=== PATIENT | female | born 1950 | race Caucasian/White ===

== ENCOUNTER 2020-10-26 14:47 | Outpatient (CLI) | payer MEDICARE, OTHER ==
[2020-10-26] MEDS ORDERED: CHOL500015 PO (15:48)
[2020-10-26] MEDS ORDERED: LANS30CA PO (15:48)
[2020-10-26] MEDS ORDERED: CALC-112 PO (15:48)
[2020-10-26] MEDS ORDERED: IBUP-1221 PO (15:48)
[2020-10-26] MEDS ORDERED: DIPH25CA61 PO (15:48)
[2020-10-26] MEDS ORDERED: HYDR-3237 PO (15:48)
[2020-10-26] MEDS ORDERED: ASCO250T32 PO (15:48)
[2020-10-26] MEDS ORDERED: CYAN50008 PO (15:48)
[2020-10-26] MEDS ORDERED: LEVO112T2 PO (15:48)
[2020-10-26] MEDS ORDERED: CARI-389 PO (15:48)
[2020-10-26] MEDS ORDERED: HYDR-826 PO (15:48)
[2020-10-26] MEDS ORDERED: Turmeric PO (15:48)
[2020-10-26] MEDS ORDERED: NAPR-685 PO (15:48)
[2020-10-26 15:59] LABS: BASOPHILS % (AUTO) 1 % (0-1); EOSINOPHILS % (AUTO) 1 % (1-7); LYMPHOCYTES % (AUTO) 20 % (22-44); MEAN CORPUSCULAR HEMOGLOBIN 30.1 pg (27.0-34.8); MEAN CORPUSCULAR HGB CONC 33.9 g/dL (32.4-35.8); MEAN PLATELET VOLUME 7.5 fL (7.4-10.4); MONOCYTES % (AUTO) 7 % (2-9); NEUTROPHILS % (AUTO) 71 % (42-75); PLATELET COUNT 510 x10^3/uL (130-400); RED BLOOD COUNT 4.97 x10^6/uL (3.82-5.3)
[2020-10-26 16:09] LABS: ANION GAP 5 mmol/L (5-15); CALCIUM 9.5 mg/dL (8.5-10.1); CHLORIDE 108 mmol/L (98-107); CREATININE 0.86 mg/dL (0.55-1.02)
[2020-10-26 16:12] LABS: MD NO
== END 2020-10-26 23:59 | disposition home or self-care (01) ==
LOC: STAR 14:47
PROVIDERS: ATTEND Orthopaedic Surgery
DX: Z01.812 Encounter for preprocedural laboratory examination (principal); Z20.822 Contact with and (suspected) exposure to COVID-19; Z01.818 Encounter for other preprocedural examination; M13.852 Other specified arthritis, left hip; I44.4 Left anterior fascicular block
CPT/HCPCS: 36415; 80048; 85025; 87081; 93005; U0003

== ENCOUNTER 2020-11-01 05:42 | Observation (INO) | payer MEDICARE, OTHER ==
[~2020-11-01] VITALS: Ht 162.6 cm; Wt 92.6 kg
[~2020-11-01 05:42] MED LIST: ASCO250T32 PO; CALC-112 PO; CARI-389 PO; CHOL500015 PO; CYAN50008 PO; DIPH25CA61 PO; HYDR-3237 PO; HYDR-826 PO; IBUP-1221 PO; LANS30CA PO; LEVO112T2 PO; NAPR-685 PO; Turmeric PO
[2020-11-01] MEDS ORDERED: VANCOMYCIN 1,000 MG ONE (05:57)
[2020-11-01] MEDS ORDERED: TRANEXAMIC ACID 100 MG/ML, 10ML ONE ×2 (05:57)
[2020-11-01] MEDS ORDERED: KETOROLAC 60 MG/2 ML ONE (05:57)
[2020-11-01] MEDS ORDERED: ROPIvacaine/PF 0.2%, 20 ML ONE (05:57)
[2020-11-01] MEDS ORDERED: SODIUM CHLORIDE 0.9% 50 ML ONE (05:58)
[2020-11-01] MEDS ORDERED: EPINEPHRINE 1 MG/ML, 1ML ONE (05:58)
[2020-11-01 06:06] VITALS: BP 136/94
[2020-11-01] MEDS ORDERED: CHLORHEXIDINE 15 ML UDC PO ONE (06:30)
[2020-11-01] MEDS ORDERED: LACTATED RINGERS 1,000 ML IV SCH (06:30)
[2020-11-01] MEDS ORDERED: FENTANYL PF 250 MCG/5ML ONE (06:46)
[2020-11-01] MEDS ORDERED: ROCURONIUM 10MG/ML,5ML ONE (07:23)
[2020-11-01] MEDS ORDERED: GLYCOPYRROLATE 0.2MG/1ML, 5ML ONE (07:23)
[2020-11-01] MEDS ORDERED: PROPOFOL 10 MG/ML, 20ML ONE (07:23)
[2020-11-01] MEDS ORDERED: SUCCINYLCHOLINE 20 MG/ML, 10ML ONE (07:23)
[2020-11-01] MEDS ORDERED: DEXAMETHASONE 4 MG/ML, 1ML ONE (07:23)
[2020-11-01] MEDS ORDERED: CEFAZOLIN 1,000 MG ONE (07:23)
[2020-11-01] MEDS ORDERED: NEOSTIGMINE 1 MG/ML, 10ML ONE (07:23)
[2020-11-01] MEDS ORDERED: ONDANSETRON 2MG/ML, 2ML ONE ×2 (07:23→08:55)
[2020-11-01] MEDS ORDERED: OXYcodone 5 MG/5 ML ORAL.SOL UDC PO PRN (07:30)
[2020-11-01] MEDS ORDERED: PROMETHAZINE 25 MG SUPP PR PRN (07:30)
[2020-11-01] MEDS ORDERED: HYDROmorphone 1 MG/ML, 1ML INJ IVPush PRN ×2 (07:30→09:00)
[2020-11-01] MEDS ORDERED: LABETALOL 5MG/ML, 20ML IV PRN (07:30)
[2020-11-01] MEDS ORDERED: METHOCARBAMOL 1,000 MG in DEXTROSE 5% 100 ML IV PRN (07:30)
[2020-11-01] MEDS ORDERED: LORazepam 2 MG/ML, 1ML IVPush PRN (07:30)
[2020-11-01] MEDS ORDERED: ACETAMINOPHEN 325 MG TABLET PO PRN (07:30)
[2020-11-01] MEDS ORDERED: ONDANSETRON 2MG/ML, 2ML IVPush PRN ×2 (07:30→09:00)
[2020-11-01] MEDS ORDERED: hydrALAzine 20 MG/ML, 1ML IV PRN (07:30)
[2020-11-01] MEDS ORDERED: HYDROmorphone 1 MG/ML, 1ML INJ ONE ×2 (07:35→08:17)
[2020-11-01] MEDS ORDERED: FENTANYL PF 100 MCG/2ML ONE ×2 (08:55→09:23)
[2020-11-01] MEDS ORDERED: ONDANSETRON 4 MG TABLET PO PRN (09:00)
[2020-11-01] MEDS ORDERED: TRANEXAMIC ACID 1,000 MG in SODIUM CHLORIDE 0.9% 100 ML IVPB ONE (09:00)
[2020-11-01] MEDS ORDERED: DIPHENHYDRAMINE 25 MG CAPSULE PO PRN (09:00)
[2020-11-01] MEDS ORDERED: OXYcodone/APAP 10/325MG TABLET PO PRN (09:00)
[2020-11-01] MEDS ORDERED: PROMETHAZINE 25 MG/ML, 1ML IM PRN (09:00)
[2020-11-01] MEDS: FENTANYL PF 100 MCG/2ML IV PRN ×3 (09:01→09:27)
[2020-11-01] MEDS ORDERED: PROMETHAZINE 25 MG/ML, 1ML ONE (09:47)
[2020-11-01] MEDS: PROMETHAZINE 25 MG/ML, 1ML IVPush PRN (09:50)
[2020-11-01] MEDS ORDERED: HALOPERIDOL 5 MG/ML ONE (10:19)
[2020-11-01] MEDS ORDERED: HALOPERIDOL 5 MG/ML IV ONE (10:30)
[2020-11-01] MEDS ORDERED: METOCLOPRAMIDE 5 MG/ML, 2ML IVPush PRN (11:00)
[2020-11-01 12:44] VITALS: BP 108/70
[2020-11-01] MEDS ORDERED: DEXAMETHASONE 4 MG/ML, 1ML IVPush ONE (13:00)
[2020-11-01] MEDS ORDERED: SCOPOLAMINE 1MG PATCH TD ONE (13:00)
[2020-11-01] MEDS: DOCUSATE 100 MG CAPSULE PO SCH ×2 (14:33→20:40)
[2020-11-01] MEDS: OXYcodone/APAP 5/325MG TABLET PO PRN ×3 (16:46→22:04)
[2020-11-01] MEDS: CEFAZOLIN PMX 1GM/50ML 50 ML IVPB SCH (16:46)
[2020-11-01] MEDS: KETOROLAC 30 MG/1 ML IV SCH (16:47)
[2020-11-01 19:36] VITALS: BP 147/78
[2020-11-01] MEDS: DIAZEPAM 5 MG TABLET PO PRN (20:40)
[2020-11-02 00:19] VITALS: BP 109/65
[2020-11-02] MEDS: CEFAZOLIN PMX 1GM/50ML 50 ML IVPB SCH (00:27)
[2020-11-02] MEDS: KETOROLAC 30 MG/1 ML IV SCH ×2 (00:27→08:10)
[2020-11-02] MEDS: DIAZEPAM 5 MG TABLET PO PRN (01:50)
[2020-11-02] MEDS: OXYcodone/APAP 5/325MG TABLET PO PRN ×3 (03:12→13:54)
[2020-11-02 03:59] VITALS: BP 112/73
[2020-11-02] MEDS ORDERED: ASPIRIN 81 MG TABLET EC PO SCH ×2 (06:00→18:00)
[2020-11-02] MEDS ORDERED: LEVOTHYROXINE 112 MCG TABLET PO SCH (06:00)
[2020-11-02] MEDS ORDERED: DEXAMETHASONE 4 MG/ML, 1ML IVPush ONE (06:00)
[2020-11-02 06:55] VITALS: BP 113/69
[2020-11-02] MEDS ORDERED: KETOROLAC 30 MG/1 ML ONE (08:08)
[2020-11-02] MEDS: DOCUSATE 100 MG CAPSULE PO SCH (08:10)
[2020-11-02 13:05] VITALS: BP 111/71
[2020-11-02 15:08] VITALS: BP 148/93
== END 2020-11-02 14:55 | disposition home or self-care (01) ==
LOC: OUT 05:42 → ORIP 08:40 → 4NE 11:24 → DCLOUNGE 11-02 14:37
PROVIDERS: ADMIT Orthopaedic Surgery; ATTEND Orthopaedic Surgery
DX: M16.12 Unilateral primary osteoarthritis, left hip (principal); M17.12 Unilateral primary osteoarthritis, left knee; G89.29 Other chronic pain; M54.9 Dorsalgia, unspecified; E03.9 Hypothyroidism, unspecified; K21.9 Gastro-esophageal reflux disease without esophagitis; F11.20 Opioid dependence, uncomplicated; E66.3 Overweight; I10 Essential (primary) hypertension; Z88.0 Allergy status to penicillin; Z87.891 Personal history of nicotine dependence; Z96.642 Presence of left artificial hip joint; Z79.899 Other long term (current) drug therapy; Z90.710 Acquired absence of both cervix and uterus
CPT/HCPCS: 27130; 36415; 72170; 86850; 86900; 96365; 96366; 96375; 96376; 97110; 97161; C1713; C1776; G0378; J0171; J0330; J0690; J1100; J1170; J1630; J1885; J2405; J2550; J2704; J2710; J2795; J2800; J3010; J7120; Q0177; J3370